=== PATIENT | female | born 1985 | race African-American/Black ===

== ENCOUNTER 2018-10-27 08:40 | Observation (INO) | payer MEDICAID ==
[~2018-10-27] VITALS: Ht 162.6 cm; Wt 68.9 kg
[2018-10-27] MEDS ORDERED: ACETAMINOPHEN 500MG TABLET PO ONE (09:00)
[2018-10-27] MEDS ORDERED: PNV1TABL76 PO (09:25)
[2018-10-27 09:26] LABS: CLARITY URINE CLEAR (CLEAR); COLOR URINE YELLOW (YELLOW); KETONES URINE NEGATIVE (NEGATIVE); LEUKOCYTE ESTERASE URINE TRACE (NEGATIVE); NITRITE URINE NEGATIVE (NEGATIVE); OCCULT BLOOD URINE NEGATIVE (NEGATIVE); PH URINE 7.5 (4.5-8.0); PROTEIN URINE NEGATIVE (NEGATIVE); UROBILINOGEN URINE 0.2 E.U./dL (0.2-1.0)
== END 2018-10-27 10:32 | disposition home or self-care (01) ==
LOC: 8 EST LDRP 08:40
PROVIDERS: ADMIT Obstetrics & Gynecology; ATTEND Obstetrics & Gynecology
DX: O26.899 Other specified pregnancy related conditions, unspecified trimester (principal); M54.9 Dorsalgia, unspecified; R10.2 Pelvic and perineal pain; Z3A.00 Weeks of gestation of pregnancy not specified
CPT/HCPCS: 81003; 99281; G0378